=== PATIENT | male | born 1955 | race Caucasian/White ===

== ENCOUNTER 2021-02-24 21:55 | Emergency (ER) | payer MEDICARE, BC ==
[~2021-02-24 21:55] MED LIST: AMOXICILLIN500 MG PO; CO Q-10200 M1 PO; GLUCOPHAGE500 MG PO; PRAVASTATIN20 MG PO; ZESTRIL10 M1 PO; [UNRECOGNIZED DRUG - OTHER] PO
[2021-02-24 22:27] LABS: HEMATOCRIT 51.3 % (39.0-50.0); HEMOGLOBIN 17.5 g/dl (14.0-18.0); IMMATURE GRANULOCYTES 0.5 % (0.0-5.0); MEAN CORPUSCULAR HGB 33.1 pG CALC (26.0-32.0); MEAN CORPUSCULAR HGB CONC 34.1 g/dL CAL (32.0-36.0); NEUT# 12.94 thou/uL (1.82-7.42); RED BLOOD COUNT 5.29 mill/uL (4.70-6.10); RED CELL DISTRI WIDTH 12.6 % (11.5-15.5)
[2021-02-24] MEDS ORDERED: ATORVASTATIN CA10 MG PO (22:29)
[2021-02-24] MEDS ORDERED: CIALIS5 MG PO (22:30)
[2021-02-24 22:42] LABS: ALBUMIN 4.8 g/dL (3.2-5.0); ALKALINE PHOSPHATASE 85 u/l (38-126); ANION GAP 16 (6-22 (CALC)); BILIRUBIN, TOTAL 1.3 mg/dL (0.0-1.4); BUN 16 mg/dL (8-23); BUN/CREATININE RATIO 20 (12-20 (CALC)); CARBON DIOXIDE 25 mmol/l (22-30); CHLORIDE 96 mmol/l (95-108); CREATININE 0.8 mg/dL (0.7-1.3); GFR > 60 ML/MIN (>=60 (CALC)); GFR FOR AFR.AMER. > 60 ML/MIN (>=60 (CALC)); POTASSIUM 4.1 mmol/l (3.5-5.1); SGOT/AST 471 u/l (19-48); SODIUM 133 mmol/l (137-146); TOTAL PROTEIN 7.9 g/dL (6.3-8.2)
[2021-02-24 22:49] VITALS: BP 127/79
[2021-02-24 22:54] LABS: MYOGLOBIN 173 ng/mL (0 - 121)
[2021-02-24 22:56] LABS: D-DIMER 0.75 mg/L (0.19-0.60)
[2021-02-24 23:04] LABS: ACT PARTIAL THROMBO TIME 25.5 SECONDS (20.0-32.5)
[2021-05-13] MEDS ORDERED: COZAAR25 MG PO (16:07)
[2021-05-13] MEDS ORDERED: DIGOXIN250 MCG PO (16:09)
[2021-05-13] MEDS ORDERED: SPIRONOLACT25 MG PO (16:10)
[2021-05-13] MEDS ORDERED: ELIQUIS5 MG PO (16:11)
[2021-05-13] MEDS ORDERED: LIPITOR80 M1 PO (16:11)
[2021-05-13] MEDS ORDERED: METFORMIN500 M2 PO (16:12)
[2021-05-13] MEDS ORDERED: CLOPIDOGREL75 MG PO (16:12)
[2021-05-13] MEDS ORDERED: AMIODARONE200 MG PO (16:13)
== END 2021-02-24 22:49 | disposition short-term general hospital (02) ==
LOC: ED 21:55
PROVIDERS: Family Medicine
DX: R94.31 Abnormal electrocardiogram [ECG] [EKG] (principal); I48.91 Unspecified atrial fibrillation; I10 Essential (primary) hypertension; E11.9 Type 2 diabetes mellitus without complications; E66.9 Obesity, unspecified; F17.290 Nicotine dependence, other tobacco product, uncomplicated; Z79.84 Long term (current) use of oral hypoglycemic drugs; Z20.822 Contact with and (suspected) exposure to COVID-19; R06.02 Shortness of breath
CPT/HCPCS: J1160

== ENCOUNTER 2022-09-28 09:39 | Emergency (ER) | payer MEDICARE, BC ==
[~2022-09-28] VITALS: Ht 193 cm; Wt 118.6 kg
[~2022-09-28 09:39] MED LIST changes: +AMIODARONE200 MG PO; +ATORVASTATIN CA10 MG PO; +CIALIS5 MG PO; +CLOPIDOGREL75 MG PO; +COZAAR25 MG PO; +DIGOXIN250 MCG PO; +ELIQUIS5 MG PO; +LIPITOR80 M1 PO; +METFORMIN500 M2 PO; +SPIRONOLACT25 MG PO
[2022-09-28 10:08] VITALS: BP 123/72
[2022-09-28 10:20] VITALS: BP 117/65
[2022-09-28] MEDS ORDERED: COREG6.25 MG PO (10:21)
[2022-09-28] MEDS ORDERED: ENTRESTO 24-261 TAB (10:22)
[2022-09-28 10:40] VITALS: BP 112/65
[2022-09-28] MEDS ORDERED: DOXY-CAPS100 MG PO (10:59)
[2022-09-28] MEDS ORDERED: PROVENTIL HFA IN (10:59)
[2022-09-28] MEDS ORDERED: PREDNISONE50 MG PO (10:59)
[2022-09-28 11:00] VITALS: BP 113/74
[2022-09-28 11:20] VITALS: BP 99/53
[2022-09-28 11:26] VITALS: BP 99/53
== END 2022-09-28 11:32 | disposition home or self-care (01) ==
LOC: ED 09:39
DX: J40 Bronchitis, not specified as acute or chronic (principal); F17.200 Nicotine dependence, unspecified, uncomplicated; Z20.822 Contact with and (suspected) exposure to COVID-19